=== PATIENT | male | born 1945 | race Caucasian/White ===

== ENCOUNTER 2020-06-17 12:59 | Inpatient (IN) | payer OTHER ==
[~2020-06-17] VITALS: Ht 177.8 cm; Wt 85.3 kg
[~2020-06-17 12:59] MED LIST: APOM10CA7 SQ; CARB-93 PO; CARB-96 PO; DIGO250T PO; FURO-151 PO; METO-357 PO; OXYC10TA59 PO; POTASSIUM CHLORIDE; PRAV40TA3 PO; RASA1TAB PO; RIVA20TA PO; ROPI1TAB2 PO; ROPI8TAB PO; SPIR25TA6 PO; TAMS0.4C34 PO
--- NOTE | 2020-06-17 13:02 | NUR ---
PATIENT IS HERE FROM [facility]. HE IS AWAKE AND ALERT WITH NO COMPLAINTS. I GAVE HIM WATER REQUESTED. HIS BELONGINGS ARE AT THE NURSES STATION AND SUICIDE PRECAUTIONS INITIATED.
[2020-06-17] MEDS ORDERED: CARB-93 PO ×2 (13:24)
[2020-06-17] MEDS ORDERED: DIVA125C2 PO (13:24)
[2020-06-17] MEDS ORDERED: CHOL10002 PO (13:24)
[2020-06-17] MEDS ORDERED: ATOR20TA PO (13:24)
[2020-06-17] MEDS ORDERED: LACT10SO PO (13:24)
[2020-06-17] MEDS ORDERED: MENT71OI TP (13:24)
[2020-06-17] MEDS ORDERED: DOCU100C36 PO (13:24)
[2020-06-17] MEDS ORDERED: MAGN296S70 PO (13:24)
[2020-06-17] MEDS ORDERED: DULO30CA2 PO (13:24)
[2020-06-17] MEDS ORDERED: IBUP-1953 PO (13:24)
--- NOTE | 2020-06-17 13:24 | NUR ---
REPORT GIVEN TO MHU NURSE
[2020-06-17] MEDS ORDERED: MORP30TA7 PO (13:39)
[2020-06-17] MEDS ORDERED: WHEA1POW6 PO (13:40)
[2020-06-17] MEDS ORDERED: QUET50TA PO (13:41)
[2020-06-17 14:30] VITALS: BP 143/84
--- NOTE | 2020-06-17 14:30 | NUR ---
Gps/Animal Feeder-Received from ER via gurney , alert, oriented x 3 , follows directions, slightly tremulous during transfers, needed verbal cueing sequencing tasks. Patient was admitted on 5150 as DTS/DTO, ws noted brought in into Emergency Dept. by Caregiver for rectal pain .Patient has hx of dementia and depression and he resides at assisted living facility Patient with worsening depression ,aggressive behavior and suicidal thought Patient denies S.I. nor H.I. Routine admission care done.
[2020-06-17] MEDS ORDERED: TEMAZEPAM 7.5 MG CAPSULE PO PRN (15:45)
[2020-06-17] MEDS ORDERED: ACETAMINOPHEN 325 MG TABLET PO PRN (15:45)
[2020-06-17] MEDS ORDERED: BLOOD SUGAR DIAGNOSTIC 1 EACH STRIP VI ONE (15:45)
[2020-06-17] MEDS ORDERED: MAGNESIUM HYDROXIDE 30 ML LIQUID UDC PO PRN (15:45)
[2020-06-17] MEDS ORDERED: MAG HYDROX/AL HYDROX/SIMETH 30 ML LIQUID UDC PO PRN (15:45)
--- NOTE | 2020-06-17 16:00 | NUR ---
Gps/Die Repairer Trimmer Dies- Called Luz () at [phone] , was informed of patient's admission to the MHU. Claimed staff can call her anytime.
--- NOTE | 2020-06-17 16:45 | NUR ---
Tasia Milton NP was informed of the admission, requested to called patient's Pharmacy to clarify/verify medications . Called [facility] (Ind. living facility) [phone] spoked to Kiera and thee [facility] ([phone]), supervisor fabrication Pharmacist was called, (Kimo) claimed patient was not on xarelto per their record, will faxed medication records.
[2020-06-17 20:00] VITALS: BP 132/82
[2020-06-17] MEDS: IBUPROFEN 200 MG TABLET PO PRN (20:26)
[2020-06-17] MEDS: LORAZEPAM 0.5 MG TABLET PO PRN (20:26)
[2020-06-17] MEDS: ATORVASTATIN 20 MG TABLET PO SCH (20:26)
[2020-06-18] MEDS ORDERED: CARBIDOPA/LEVODOPA 25-100MG TABLET PO SCH ×3 (06:00→21:00)
[2020-06-18 07:10] LABS: BASOPHILS % (AUTO) 0.3 % (0.0-2.0); EOSINOPHILS % (AUTO) 0.4 % (0.0-7.0); HEMATOCRIT 46.4 % (36.7-47.1); HEMOGLOBIN 15.6 g/dL (12.5-16.3); LYMPHOCYTES # (AUTO) 0.9 K/uL (20.0-40.0); LYMPHOCYTES % (AUTO) 11.6 % (20.5-51.5); MEAN CORPUSCULAR HEMOGLOBIN 29.9 uug (23.8-33.4); MEAN CORPUSCULAR HGB CONC 34 g/dL (32.5-36.3); MEAN CORPUSCULAR VOLUME 88.9 fL (73.0-96.2); MONOCYTES # (AUTO) 0.5 K/uL (2.0-10.0); MONOCYTES % (AUTO) 6.5 % (0.0-11.0); NEUTROPHILS # (AUTO) 6.5 K/uL (1.8-8.9); NEUTROPHILS % (AUTO) 81.2 % (38.5-71.5); PLATELET COUNT (AUTO) 174 K/uL (152-348); RED BLOOD CELL COUNT(AUTO) 5.21 MIL/uL (4.06-5.63)
[2020-06-18 07:30] VITALS: BP 145/75
[2020-06-18 07:35] LABS: MAGNESIUM 2.1 mg/dL (1.8-2.4); PHOSPHOROUS 3.3 mg/dL (2.5-4.9); POTASSIUM 3.7 mmol/L (3.5-5.1)
[2020-06-18 07:39] LABS: THYROID STIMULATING HORMONE 0.565 mIU/mL (0.358-3.740)
[2020-06-18] MEDS ORDERED: CARB-94 PO (08:40)
[2020-06-18] MEDS ORDERED: CARB-96 PO (08:44)
[2020-06-18] MEDS ORDERED: MORPHINE SULFATE SR 30 MG TABLET.SA PO SCH ×2 (09:00)
[2020-06-18] MEDS ORDERED: LACTULOSE 20 G/30 ML LIQUID UDC PO SCH (09:00)
[2020-06-18] MEDS: DOCUSATE SODIUM 100 MG CAPSULE PO SCH (10:06)
[2020-06-18] MEDS: CARBIDOPA/LEVODOPA 25-250MG TABLET PO SCH ×4 (10:06→18:22)
[2020-06-18] MEDS: CHOLECALCIFEROL 1,000 UNIT TABLET PO SCH (10:06)
[2020-06-18] MEDS: METOPROLOL SUCCINATE XL 25 MG TAB.SR.24H PO SCH (10:07)
[2020-06-18] MEDS: LACTULOSE 20 G/30 ML LIQUID UDC PO SCH (10:08)
--- NOTE | 2020-06-18 11:05 | NUR ---
TYRONE Initial Discharge Plan: Patient currently resides at [facility] [address] [place] [address] ([phone]). Patient's , Gerry Olivas ([phone]) is also the pt's DPOA and is involved in the pt's care and would like patient to return to [facility]. TYRONE will continue to work with patient, family, and MD to ensure a safe and proper discharge plan.
--- NOTE | 2020-06-18 11:06 | NUR ---
TYRONE Family Contact: Patient currently resides at [facility] [address] [place] [address] ([phone]). Patient's , Gerry Olivas ([phone]) is also the pt's DPOA and is involved in the pt's care and would like patient to return to [facility]. TYRONE will continue to work with patient, family, and MD to ensure a safe and proper discharge plan. Addendum: 06/18/20 at 1108 by MIKE VILLANUEVA Disregard Note
--- NOTE | 2020-06-18 11:08 | NUR ---
TYRONE Family Contact: TYRONE spoke with patient's , Gerry Olivas ([phone]) who stated she is the pt's DPOA, this lead technical writer requested for her to send the document which she stated that she will. Gerry shared that she would like the patient to return to [facility]. This lead technical writer discussed treatment and discharge plan.
--- NOTE | 2020-06-18 11:10 | NUR ---
Firearms Report: Cleater completed and submitted a [employer] firearms report for 5150 grave disability certification. A copy of report has been placed in patient chart.
[2020-06-18] MEDS ORDERED: MORP30TA PO (11:11)
--- NOTE | 2020-06-18 11:13 | NUR ---
TYRONE UR Note: TYRONE called Mackenzie fruit or nut farmworker at [facility] (ph: [phone]) to discuss authorization and clinicals needing to be sent. Waiting for a call back.
[2020-06-18] MEDS: DULOXETINE 30 MG CAPSULE.DR PO SCH (12:11)
[2020-06-18] MEDS: MORPHINE SULFATE IR 30 MG TABLET PO SCH ×2 (12:11→16:34)
[2020-06-18] MEDS: DIVALPROEX SPRINKLE 125 MG CAP.SPRINK PO SCH ×2 (12:12→16:32)
[2020-06-18 15:17] VITALS: BP 134/81
--- NOTE | 2020-06-18 16:12 | NUR ---
Gps/Senior Telecommunications Technician- Patient in bed resting, awake, quiet, guarded, remains with sitter for safety. Patient was cooperative during his P.T. session , will continue to be seen by Physical Therapist .
[2020-06-18] MEDS: IBUPROFEN 200 MG TABLET PO PRN (20:10)
[2020-06-18] MEDS: TAMSULOSIN HCL 0.4 MG CAP.SR.24H PO SCH (20:10)
[2020-06-18] MEDS: QUETIAPINE FUMARATE 25 MG TABLET PO SCH (20:10)
[2020-06-18] MEDS: ATORVASTATIN 20 MG TABLET PO SCH (20:10)
[2020-06-18] MEDS: CARBIDOPA/LEVODOPA CR 50-200MG TABLET.SA PO SCH (20:10)
[2020-06-18 20:14] VITALS: BP 150/87
[2020-06-19] MEDS: CARBIDOPA/LEVODOPA 25-250MG TABLET PO SCH ×5 (05:02→18:20)
[2020-06-19 07:30] VITALS: BP 104/62
[2020-06-19] MEDS: LACTULOSE 20 G/30 ML LIQUID UDC PO SCH (08:34)
[2020-06-19] MEDS: DOCUSATE SODIUM 100 MG CAPSULE PO SCH (08:34)
[2020-06-19] MEDS: MORPHINE SULFATE IR 30 MG TABLET PO SCH ×3 (08:35→16:49)
[2020-06-19] MEDS: CHOLECALCIFEROL 1,000 UNIT TABLET PO SCH (08:35)
[2020-06-19] MEDS: DIVALPROEX SPRINKLE 125 MG CAP.SPRINK PO SCH ×3 (08:35→16:49)
[2020-06-19] MEDS: METOPROLOL SUCCINATE XL 25 MG TAB.SR.24H PO SCH (08:37)
--- NOTE | 2020-06-19 09:34 | NUR ---
Patient received in room with a sitter, Pt is AAO x 3, able to express needs. No acute distress noted. Patient with tremors while getting up to sit on a thong-chair; with 2 person assist for care. Pt. was able to take all due morning meds. Skin kept clean and dry and will continue with care.
--- NOTE | 2020-06-19 09:35 | NUR ---
Patient with 1:1 sitter for safety.
[2020-06-19] MEDS: DULOXETINE 30 MG CAPSULE.DR PO SCH (13:12)
[2020-06-19 14:37] LABS: *BILIRUBIN,URIN NEGATIVE (NEGATIVE); *BLOOD, URINE NEGATIVE (NEGATIVE); *CLARITY,URINE CLEAR (CLEAR); *COLOR,URINE YELLOW (YELLOW); *KETONES,URINE TRACE (NEGATIVE); LEUKOCYTE ESTERASE ,URINE NEGATIVE (NEGATIVE); NITRITE, URINE NEGATIVE (NEGATIVE); PH,URINE 6.5 (5.0-8.0); UGLUCOSE NEGATIVE (NEGATIVE)
[2020-06-19 16:00] VITALS: BP 141/81
[2020-06-19 17:08] LABS: BACTERIA,URINE NONE SEEN /HPF (NONE SEEN); RBC,URINE 0-3 /HPF (0-3); SQUAMOUS EPITHELIAL CELL,UR FEW /HPF (NONE SEEN); WBC,URINE 0-3 /HPF (0-3)
[2020-06-19 20:11] VITALS: BP 123/73
[2020-06-19] MEDS: QUETIAPINE FUMARATE 25 MG TABLET PO SCH (20:41)
[2020-06-19] MEDS: TAMSULOSIN HCL 0.4 MG CAP.SR.24H PO SCH (20:41)
[2020-06-19] MEDS: ATORVASTATIN 20 MG TABLET PO SCH (20:41)
[2020-06-19] MEDS: CARBIDOPA/LEVODOPA CR 50-200MG TABLET.SA PO SCH (20:42)
--- NOTE | 2020-06-19 21:29 | NUR ---
Received patient in his room in bed. he is noted A/O x 3. he continue on 1:1 supervision for high fall risk. patient is clm and pleasant upon approached, he is able to verbalzied feelings. mood is low, affect is blunted. patient denied SI. He also denied AH/VH/HI. he is able to CFS. He stated, "I tried to take my life by drinking mouth wash. It was a very stupid thing i did". he also added that, "I was in so much pain and that is why i did that, but now I don't want to harm myself, i don't want to ". patient was reassured for his safety, safety and fall precaution in place. v/s stable at this time. patient is able to comply with medication regiment. will continue to monitor.
[2020-06-20] MEDS: CARBIDOPA/LEVODOPA 25-250MG TABLET PO SCH ×5 (06:21→17:21)
--- NOTE | 2020-06-20 07:08 | NUR ---
patient slept for approx. 7.30 hrs through the night. continue withdrawn and isolative. however, he denied SI. he is able to CFS. He also will continue on 1:1 supervision for fall risk.
[2020-06-20 07:30] VITALS: BP 115/60
[2020-06-20] MEDS: CHOLECALCIFEROL 1,000 UNIT TABLET PO SCH (08:42)
[2020-06-20] MEDS: DOCUSATE SODIUM 100 MG CAPSULE PO SCH (08:42)
[2020-06-20] MEDS: MORPHINE SULFATE IR 30 MG TABLET PO SCH ×3 (08:42→16:35)
[2020-06-20] MEDS: DIVALPROEX SPRINKLE 125 MG CAP.SPRINK PO SCH ×3 (08:43→16:35)
[2020-06-20] MEDS: LACTULOSE 20 G/30 ML LIQUID UDC PO SCH (08:43)
[2020-06-20] MEDS: METOPROLOL SUCCINATE XL 25 MG TAB.SR.24H PO SCH (08:45)
--- NOTE | 2020-06-20 10:45 | NUR ---
Patient received in room with a 1:1 sitter by bed side for safety. Patient is AAO x 3. NO acute distress noted. Able to express need verbally. Vital signs stable. Due morning medications administered as ordered and scheduled and tolerated well. Patient is complaint with medication therapy and care. Denies any suicidal ideations at this time. Patient encouraged to participate in group therapy. Patient joins therapy with minimal participation.
[2020-06-20] MEDS: DULOXETINE 30 MG CAPSULE.DR PO SCH (13:17)
--- NOTE | 2020-06-20 13:50 | NUR ---
Patient refused 1PM Depakote order. Patient very fidgety and unable to administer medication; patient also pushing meds away while trying to administer. Will continue with care. Addendum: 06/20/20 at 1918 by AMI ORDONEZ RN RN WRONG CHARTING.
--- NOTE | 2020-06-20 15:32 | NUR ---
Patient calm at this time. Cooperates with care. Safety measures in place and will continue with care.
[2020-06-20 16:00] VITALS: BP 110/58
--- NOTE | 2020-06-20 18:23 | NUR ---
Patient back in bed at this time after eating dinner. Sitter at bed side for safety, will continue to monitor.
[2020-06-20 20:11] VITALS: BP 104/59
[2020-06-20] MEDS: ATORVASTATIN 20 MG TABLET PO SCH (20:13)
[2020-06-20] MEDS: CARBIDOPA/LEVODOPA CR 50-200MG TABLET.SA PO SCH (20:13)
[2020-06-20] MEDS: TAMSULOSIN HCL 0.4 MG CAP.SR.24H PO SCH (20:13)
[2020-06-20] MEDS: QUETIAPINE FUMARATE 25 MG TABLET PO SCH (20:14)
--- NOTE | 2020-06-21 | NUR ---
Pt is transferred to 3rd floor from MHU via thong chair, transported by ZARI Diamond. Pt in no apparent distress. Pt is calm and cooperative. Pt denies S/I or hallucination. V/S stable on room air. Sitter is on the bedside. Safety measures in place, call light within reach. Will continue with the plan of care.
[2020-06-21] MEDS: CARBIDOPA/LEVODOPA 25-250MG TABLET PO SCH ×5 (06:01→17:23)
--- NOTE | 2020-06-21 07:05 | NUR ---
Pt slept through the night for 6 hours. Pt is awake and denies any acute distress or pain. Pt is calm and cooperative. Denies any SI. Sitter on the bedside. Fall and aspiration precaution maintained. Comfort care and needs attended. Safety measures in place. Will endorse to the oncoming nurse accordingly.
[2020-06-21 08:00] VITALS: BP 101/50
[2020-06-21] MEDS: DIVALPROEX SPRINKLE 125 MG CAP.SPRINK PO SCH ×3 (08:10→17:23)
[2020-06-21] MEDS: DOCUSATE SODIUM 100 MG CAPSULE PO SCH (08:10)
[2020-06-21] MEDS: CHOLECALCIFEROL 1,000 UNIT TABLET PO SCH (08:10)
[2020-06-21] MEDS: METOPROLOL SUCCINATE XL 25 MG TAB.SR.24H PO SCH (08:26)
[2020-06-21] MEDS: LACTULOSE 20 G/30 ML LIQUID UDC PO SCH (08:27)
[2020-06-21] MEDS: MORPHINE SULFATE IR 30 MG TABLET PO SCH ×3 (08:28→17:23)
--- NOTE | 2020-06-21 10:14 | NUR ---
Received patient awake in bed in stable condition. Slight tremors noted during round. Patient on sinemet routine for parkinson. Patient continue on 1:1 sitter. tolerated well. Patient seen and examined by MD Fonseca with no new order. not in distress. will continue monitor
[2020-06-21] MEDS: DULOXETINE 30 MG CAPSULE.DR PO SCH (13:29)
[2020-06-21 16:00] VITALS: BP 122/60
[2020-06-21] MEDS: LORAZEPAM 0.5 MG TABLET PO PRN (18:33)
--- NOTE | 2020-06-21 19:30 | NUR ---
Received patient in his room in bed. he is noted A/O x 3. Patient engages in conversation when approached. Their mood is low, affect is blunted and withdrawn. 1:1 Sitter at bedside. No signs or symptoms of acute distress noted at this time. Reassured patient of safety. Will continue to monitor.
[2020-06-21] MEDS: DIVALPROEX 500 MG TABLET.DR PO SCH (20:19)
[2020-06-21] MEDS: TAMSULOSIN HCL 0.4 MG CAP.SR.24H PO SCH (20:20)
[2020-06-21] MEDS: ATORVASTATIN 20 MG TABLET PO SCH (20:21)
[2020-06-21] MEDS: QUETIAPINE FUMARATE 25 MG TABLET PO SCH (20:21)
[2020-06-21] MEDS: CARBIDOPA/LEVODOPA CR 50-200MG TABLET.SA PO SCH (20:21)
[2020-06-22] MEDS: CARBIDOPA/LEVODOPA 25-250MG TABLET PO SCH ×5 (06:00→17:16)
[2020-06-22 06:35] VITALS: BP 112/68
--- NOTE | 2020-06-22 06:46 | NUR ---
Patient slept through the night for approx. 8 hours. 1:1 Sitter at bedside. Pt was cooperative with all medications. Fall precautions in place. Safety measures endorsed to oncoming nurse.
[2020-06-22] MEDS: CHOLECALCIFEROL 1,000 UNIT TABLET PO SCH (08:24)
[2020-06-22] MEDS: DIVALPROEX SPRINKLE 125 MG CAP.SPRINK PO SCH ×3 (08:24→16:56)
[2020-06-22] MEDS: LACTULOSE 20 G/30 ML LIQUID UDC PO SCH (08:24)
[2020-06-22] MEDS: MORPHINE SULFATE IR 30 MG TABLET PO SCH ×3 (08:25→16:56)
[2020-06-22 08:30] VITALS: BP 105/57
[2020-06-22 08:35] VITALS: BP 106/51
[2020-06-22] MEDS: METOPROLOL SUCCINATE XL 25 MG TAB.SR.24H PO SCH (08:35)
[2020-06-22] MEDS: DOCUSATE SODIUM 100 MG CAPSULE PO SCH (08:40)
--- NOTE | 2020-06-22 09:53 | NUR ---
TYRONE UR Note: TYRONE attempted to call Mackenzie mud car worker at [facility] (ph: [phone]) again to collect authorization information and faxed clinicals this morning (fax: [phone]). Left a voicemail requesting a return call.
--- NOTE | 2020-06-22 09:58 | NUR ---
TYRONE PRESSLEY Note: TYRONE called the [facility] main number ([phone]) and was transferred to [facility], spoke with Tiana regarding this editorial writer trying to reach Rito. Tiana transferred this editorial writer to her desk and this editorial writer was able to speak with her. This editorial writer informed the clinicals were faxed for review. Rito stated she will review the clinicals and call this editorial writer back today with authorization information. Addendum: 06/22/20 at 1501 by MIKE VILLANUEVA Rito called this editorial writer back and provided Authorization # [id number]
[2020-06-22] MEDS ORDERED: diphenhydrAMINE/ZINC ACET CREAM 28 GM TUBE TOP PRN (10:30)
[2020-06-22 10:37] VITALS: BP 116/64
[2020-06-22] MEDS: DULOXETINE 30 MG CAPSULE.DR PO SCH (13:09)
--- NOTE | 2020-06-22 14:18 | NUR ---
Received patient awake in bed. Jerking movement noted during rounds. Patient continue Sinemet for Parkinson. Patient continue pain management as order. not in distress. Patient low BP 105/57 in the morning relayed to MESHA Wise. Patient no complaint of dizziness. no new order as of this time. will continue monitor
--- NOTE | 2020-06-22 15:02 | NUR ---
SW Family Contact: SW spoke with patient's , Gerry Olivas ([phone]) and discussed how the patient is doing and what the potential discharge plan looks like.
[2020-06-22 15:18] VITALS: BP 121/60
--- NOTE | 2020-06-22 18:51 | NUR ---
Patient sent back to mental health unit for continuity of care around 630pm. Patient in stable condition. not in distress. Patient report given to PAMELA Tolentino.
[2020-06-22] MEDS: TAMSULOSIN HCL 0.4 MG CAP.SR.24H PO SCH (20:35)
[2020-06-22] MEDS: DIVALPROEX 500 MG TABLET.DR PO SCH (20:35)
[2020-06-22 20:36] VITALS: BP 93/56
[2020-06-22] MEDS: QUETIAPINE FUMARATE 25 MG TABLET PO SCH (20:36)
[2020-06-22] MEDS: ATORVASTATIN 20 MG TABLET PO SCH (20:36)
[2020-06-22] MEDS: CARBIDOPA/LEVODOPA CR 50-200MG TABLET.SA PO SCH (20:56)
--- NOTE | 2020-06-23 05:19 | NUR ---
GPS/ Pt was received up in thong-chair, 1;1 sitter with him at TV room. Pt noted with episodes of trying to help or move himself but with tremors. Also during transfer noted pt very shaky and anxious which was causing staffs difficulty moving him. Cooperative with medication and no aggression noted. 1:1 at bed side and continue monitor. Pt slept about 5hrs at night.
[2020-06-23] MEDS: CARBIDOPA/LEVODOPA 25-250MG TABLET PO SCH ×5 (06:20→17:56)
[2020-06-23 07:30] VITALS: BP 114/72
[2020-06-23 08:05] LABS: BASOPHILS % (AUTO) 0.5 % (0.0-2.0); EOSINOPHILS # (AUTO) 0.2 K/uL (0.0-0.7); EOSINOPHILS % (AUTO) 4.3 % (0.0-7.0); HEMATOCRIT 42.4 % (36.7-47.1); HEMOGLOBIN 14.1 g/dL (12.5-16.3); LYMPHOCYTES # (AUTO) 1.3 K/uL (20.0-40.0); LYMPHOCYTES % (AUTO) 27.8 % (20.5-51.5); MEAN CORPUSCULAR HEMOGLOBIN 29.9 uug (23.8-33.4); MEAN CORPUSCULAR HGB CONC 33 g/dL (32.5-36.3); MEAN CORPUSCULAR VOLUME 89.9 fL (73.0-96.2); MONOCYTES # (AUTO) 0.3 K/uL (2.0-10.0); MONOCYTES % (AUTO) 7.1 % (0.0-11.0); NEUTROPHILS # (AUTO) 2.9 K/uL (1.8-8.9); NEUTROPHILS % (AUTO) 60.3 % (38.5-71.5); PLATELET COUNT (AUTO) 147 K/uL (152-348); RED BLOOD CELL COUNT(AUTO) 4.72 MIL/uL (4.06-5.63); WHITE BLOOD COUNT (AUTO) 4.8 K/uL (3.6-10.2)
[2020-06-23 08:15] LABS: ALKALINE PHOSPHATASE 75 U/L (50-136); ASPARTATE AMINOTRANSFERASE 12 U/L (15-37); BILIRUBIN,TOTAL 0.6 mg/dL (0.2-1.0); CARBON DIOXIDE 33 mmol/L (21-32); CHLORIDE 105 mmol/L (98-107); CREATININE 0.7 mg/dL (0.6-1.3); GLUCOSE 92 mg/dL (74-106); POTASSIUM 4.8 mmol/L (3.5-5.1); TOTAL PROTEIN, SERUM 5.9 g/dL (6.4-8.2); UREA NITROGEN, BLOOD 18 mg/dL (7-18); VALPROIC ACID 87 ug/mL (50-100)
[2020-06-23 08:24] LABS: ALANINE AMINOTRANSFERASE < 6 U/L (16-63)
[2020-06-23] MEDS: DOCUSATE SODIUM 100 MG CAPSULE PO SCH (09:02)
[2020-06-23] MEDS: DIVALPROEX SPRINKLE 125 MG CAP.SPRINK PO SCH ×3 (09:02→16:45)
[2020-06-23] MEDS: CHOLECALCIFEROL 1,000 UNIT TABLET PO SCH (09:02)
[2020-06-23] MEDS: METOPROLOL SUCCINATE XL 25 MG TAB.SR.24H PO SCH (09:08)
[2020-06-23] MEDS: MORPHINE SULFATE IR 30 MG TABLET PO SCH ×3 (09:19→16:46)
[2020-06-23] MEDS: LACTULOSE 20 G/30 ML LIQUID UDC PO SCH (09:50)
--- NOTE | 2020-06-23 11:23 | NUR ---
CASSI UR Note: Authorization # [id number] Cassi spoke with correctional case manager Rito at [facility] ([phone]) regarding patient's discharge planning. This lead technical writer informed Rito of the patient's discharge date tentative for Sunday06/28/2020. Rito stated she will make the patient's aftercare follow up appointments with his primary care physician and psychiatrist and call this lead technical writer back with the appointment information.
--- NOTE | 2020-06-23 11:26 | NUR ---
TYRONE Discharge Planning: TYRONE spoke with Jud at [facility] and requested to speak with Elizabeth the therapy site coordinator ([phone]) to inform of the patient's discharge plan for Sunday. Elizabeth was unavailable at the moment and Jud stated she will pass on the message. This life insurance underwriter provided a call back number for Elizabeth to call this life insurance underwriter back. Addendum: 06/24/20 at 1439 by MIKE VILLANUEVA Corrected phone number for [facility] ([phone])
[2020-06-23] MEDS: DULOXETINE 30 MG CAPSULE.DR PO SCH (12:38)
[2020-06-23 16:00] VITALS: BP 108/62
[2020-06-23 20:13] VITALS: BP 110/62
[2020-06-23] MEDS: QUETIAPINE FUMARATE 25 MG TABLET PO SCH (21:58)
[2020-06-23] MEDS: TAMSULOSIN HCL 0.4 MG CAP.SR.24H PO SCH (21:58)
[2020-06-23] MEDS: CARBIDOPA/LEVODOPA CR 50-200MG TABLET.SA PO SCH (21:58)
[2020-06-23] MEDS: ATORVASTATIN 20 MG TABLET PO SCH (21:59)
[2020-06-23] MEDS: DIVALPROEX 500 MG TABLET.DR PO SCH (21:59)
[2020-06-24] MEDS: CARBIDOPA/LEVODOPA 25-250MG TABLET PO SCH ×5 (06:10→17:13)
[2020-06-24 07:30] VITALS: BP 119/65
[2020-06-24] MEDS: DIVALPROEX SPRINKLE 125 MG CAP.SPRINK PO SCH ×3 (09:22→16:28)
[2020-06-24] MEDS: MORPHINE SULFATE IR 30 MG TABLET PO SCH ×3 (09:22→16:28)
[2020-06-24] MEDS: CHOLECALCIFEROL 1,000 UNIT TABLET PO SCH (09:23)
[2020-06-24] MEDS: LACTULOSE 20 G/30 ML LIQUID UDC PO SCH (09:23)
[2020-06-24] MEDS: DOCUSATE SODIUM 100 MG CAPSULE PO SCH (09:23)
[2020-06-24] MEDS: METOPROLOL SUCCINATE XL 25 MG TAB.SR.24H PO SCH (09:23)
--- NOTE | 2020-06-24 11:45 | NUR ---
Gps/Gold- Myrna Cutler MINGLER OPERATOR for the patient at the [facility], wants to know the progress . Informed patient had been compliant with his routine meds, no aggressive behavior noted at this time. Kept up on his thong-chair , and staying with his group therapy
[2020-06-24] MEDS: DULOXETINE 30 MG CAPSULE.DR PO SCH (12:26)
--- NOTE | 2020-06-24 14:39 | NUR ---
TYRONE Coordination of Care: SW spoke with [facility] maintenance coordinator at [facility] ([phone]) and is aware and agreeable with patient's discharge plan back to their facility on Sunday.
--- NOTE | 2020-06-24 15:12 | NUR ---
Gps/Vibration Analyst- Called 3rd floor for report , and was given to Jemma Moralezn. . Patient was informed of his transfer.( as Psych. overflow)
--- NOTE | 2020-06-24 15:35 | NUR ---
Gps/Information Receptionist- Transferred to 3rd floor #330 (overflow) in no distress, was toileted , prior transferred .
[2020-06-24] MEDS: TAMSULOSIN HCL 0.4 MG CAP.SR.24H PO SCH (20:15)
[2020-06-24] MEDS: DIVALPROEX 500 MG TABLET.DR PO SCH (20:15)
[2020-06-24] MEDS: CARBIDOPA/LEVODOPA CR 50-200MG TABLET.SA PO SCH (20:16)
[2020-06-24] MEDS: ATORVASTATIN 20 MG TABLET PO SCH (20:16)
[2020-06-24] MEDS: QUETIAPINE FUMARATE 25 MG TABLET PO SCH (20:16)
[2020-06-24] MEDS: LORAZEPAM 0.5 MG TABLET PO PRN (21:11)
[2020-06-25 04:52] VITALS: BP 105/63
[2020-06-25] MEDS: CARBIDOPA/LEVODOPA 25-250MG TABLET PO SCH ×5 (06:12→17:30)
[2020-06-25 08:36] VITALS: BP 105/48
[2020-06-25] MEDS: METOPROLOL SUCCINATE XL 25 MG TAB.SR.24H PO SCH (09:00)
[2020-06-25] MEDS: DOCUSATE SODIUM 100 MG CAPSULE PO SCH (09:03)
[2020-06-25] MEDS: CHOLECALCIFEROL 1,000 UNIT TABLET PO SCH (09:03)
[2020-06-25] MEDS: DIVALPROEX SPRINKLE 125 MG CAP.SPRINK PO SCH ×3 (09:04→17:28)
[2020-06-25] MEDS: MORPHINE SULFATE IR 30 MG TABLET PO SCH ×3 (09:05→17:42)
[2020-06-25] MEDS: LACTULOSE 20 G/30 ML LIQUID UDC PO SCH (09:26)
--- NOTE | 2020-06-25 10:30 | NUR ---
Patient awake, alert, not in any form of distress. 1:1 sitter at bedside. Safety measures maintained. Patient compliant with medications. Patient seen by Dr. Fonseca, update given, with no new order at this time.
[2020-06-25 11:00] VITALS: BP 102/62
[2020-06-25] MEDS ORDERED: QUETIAPINE FUMARATE 25 MG TABLET PO PRN (11:15)
--- NOTE | 2020-06-25 12:08 | NUR ---
TYRONE Family Contact: SW left a brief voicemail for patient's , Gerry Olivas ([phone]) informing of the change in discharge planning. Waiting for a call back.
--- NOTE | 2020-06-25 12:09 | NUR ---
CASSI Note: Authorization # [id number] Cassi spoke with rn case manager Rito at [facility] ([phone]) regarding the change in the patient's discharge plan that was orignally planned for Thursday 06/28. Dr. Fonseca informed this greeting card writer that the aptient presented with behavior issues and attempted to strike out at staff and was agitated ad psychotic. Rito stated that the doctor did inform them of this as well, and they will continued to authorize the patient for continues hospitalization. Rito stated that she will hold off on making the patient's aftercare provider appointment until we have another set discharge date, and will also arrange transportation when the patient is ready to be discharged.
[2020-06-25] MEDS: QUETIAPINE FUMARATE 25 MG TABLET PO SCH ×3 (12:25→20:17)
[2020-06-25 15:04] VITALS: BP 110/47
--- NOTE | 2020-06-25 20:00 | NUR ---
sitter at bedside,sleeping reposition for comfort,in no acute distress vital signs stable.
[2020-06-25 20:09] VITALS: BP 106/58
[2020-06-25] MEDS: DIVALPROEX 500 MG TABLET.DR PO SCH (20:14)
[2020-06-25] MEDS: CARBIDOPA/LEVODOPA CR 50-200MG TABLET.SA PO SCH (20:15)
[2020-06-25] MEDS: TAMSULOSIN HCL 0.4 MG CAP.SR.24H PO SCH (20:16)
[2020-06-25] MEDS: ATORVASTATIN 20 MG TABLET PO SCH (20:18)
--- NOTE | 2020-06-26 | NUR ---
seroquel 25 mg not given.pt lethargic but arousable.
[2020-06-26] MEDS: CARBIDOPA/LEVODOPA 25-250MG TABLET PO SCH ×6 (06:54→18:00)
--- NOTE | 2020-06-26 07:45 | NUR ---
Received patient asleep but easily arousable, on 2LPM oxygen per nasal cannula. Received report of episode of desat with [facility] shift lead nurse hence on O2. 1:1 sitter at bedside. Will continue monitor.
--- NOTE | 2020-06-26 07:53 | NUR ---
slept most of the nite ,11 hours
[2020-06-26 08:00] VITALS: BP 110/53
[2020-06-26] MEDS: METOPROLOL SUCCINATE XL 25 MG TAB.SR.24H PO SCH (09:00)
[2020-06-26] MEDS: MORPHINE SULFATE IR 30 MG TABLET PO SCH ×3 (09:00→17:00)
[2020-06-26] MEDS: DOCUSATE SODIUM 100 MG CAPSULE PO SCH (09:29)
[2020-06-26] MEDS: QUETIAPINE FUMARATE 25 MG TABLET PO SCH ×5 (09:30→20:31)
[2020-06-26] MEDS: CHOLECALCIFEROL 1,000 UNIT TABLET PO SCH (09:30)
[2020-06-26] MEDS: DIVALPROEX SPRINKLE 125 MG CAP.SPRINK PO SCH ×4 (09:31→17:32)
[2020-06-26] MEDS: LACTULOSE 20 G/30 ML LIQUID UDC PO SCH (09:31)
--- NOTE | 2020-06-26 09:40 | NUR ---
Patient is awake. Temperature noted 99.6 with non-productive cough. DNP Maverick Wise saw patient, update given and he said to hold morphine, continue the rest of medications and that he will put in orders. Due medications administered and tolerated well, morphine held as advised by DNP.
[2020-06-26 10:13] LABS: BASOPHILS % (AUTO) 0.3 % (0.0-2.0); EOSINOPHILS # (AUTO) 0.1 K/uL (0.0-0.7); EOSINOPHILS % (AUTO) 2.4 % (0.0-7.0); HEMATOCRIT 44.2 % (36.7-47.1); HEMOGLOBIN 14.6 g/dL (12.5-16.3); LYMPHOCYTES # (AUTO) 0.9 K/uL (20.0-40.0); LYMPHOCYTES % (AUTO) 17.5 % (20.5-51.5); MEAN CORPUSCULAR HEMOGLOBIN 29.5 uug (23.8-33.4); MEAN CORPUSCULAR HGB CONC 33 g/dL (32.5-36.3); MEAN CORPUSCULAR VOLUME 89.4 fL (73.0-96.2); MONOCYTES # (AUTO) 0.4 K/uL (2.0-10.0); MONOCYTES % (AUTO) 7.6 % (0.0-11.0); NEUTROPHILS # (AUTO) 3.7 K/uL (1.8-8.9); NEUTROPHILS % (AUTO) 72.2 % (38.5-71.5); PLATELET COUNT (AUTO) 139 K/uL (152-348); RED BLOOD CELL COUNT(AUTO) 4.94 MIL/uL (4.06-5.63); WHITE BLOOD COUNT (AUTO) 5.1 K/uL (3.6-10.2)
[2020-06-26 10:23] LABS: CREATININE 0.9 mg/dL (0.6-1.3)
[2020-06-26 10:53] LABS: ABG BASE EXCESS 5.3 mmol/L; ABG HCO3 30.9 mmol/L; ABG PCO2 48.7 mmHg (35.0-45.0); ABG PO2 60.4 mmHg (75.0-100.0); ABG SITE RIGHT RADIAL; COHb 1.3 % (0.5-1.5); MetHb 0.3 % (0.0-1.5); O2Hb 90.7 % (94.0-97.0); VENT MODE Nasal Cannula
[2020-06-26] MEDS: IBUPROFEN 200 MG TABLET PO PRN (12:33)
[2020-06-26 12:44] VITALS: BP 106/66
[2020-06-26] MEDS: LORAZEPAM 0.5 MG TABLET PO PRN (14:14)
[2020-06-26] MEDS ORDERED: OLANZAPINE 10 MG VIAL IM ONE (14:45)
--- NOTE | 2020-06-26 14:50 | NUR ---
Patient noted to be aggressive, combative trying to hit/kick staff with patient care. Attempted to give routine due PO medication and PRN ativan but patient refused and threw away. Informed Dr. Vasquez airport operations duty manager for Dr. Fonseca and ordered Zyprexa 10mg IM x1. Patient also seen by Dr. Vasquez.
--- NOTE | 2020-06-26 15:42 | NUR ---
Received report from Nadine SANTIAGO, Patient was moved to Room 316.
[2020-06-26] MEDS ORDERED: BISACODYL 10 MG SUPP.RECT RC ONE (17:45)
--- NOTE | 2020-06-26 18:19 | NUR ---
Patient in bed, asleep. On Oxygen at 2L via nasal canula, sat 96%. Afebrile. No signs of pain or discomfort. 1700 and 1800 not administered, patient asleep. remains on 1:1 sitter for safety. kept clean and comfortable. Will endorse to Oncoming Nurse.
[2020-06-26] MEDS: DIVALPROEX 500 MG TABLET.DR PO SCH (20:30)
[2020-06-26] MEDS: CARBIDOPA/LEVODOPA CR 50-200MG TABLET.SA PO SCH (20:30)
[2020-06-26] MEDS: TAMSULOSIN HCL 0.4 MG CAP.SR.24H PO SCH (20:30)
--- NOTE | 2020-06-26 20:30 | NUR ---
Patient awake with O2 inhalation @ 2L via NC saturating at 96%.Noted with tremors on betsy hand.Cooperative and compliant with medication.BM x2.Changed and Reposition for comfort.Sitter at bedside.
[2020-06-26] MEDS: ATORVASTATIN 20 MG TABLET PO SCH (20:36)
[2020-06-26 22:06] VITALS: BP 141/77
[2020-06-27] MEDS: CARBIDOPA/LEVODOPA 25-250MG TABLET PO SCH ×5 (05:11→17:44)
--- NOTE | 2020-06-27 06:33 | NUR ---
Patient slept about 5.5 hrs. No episodes of aggressive behavior.1:1 sitter at bedside.Will endorse to oncoming nurse.
[2020-06-27 07:30] VITALS: BP 128/76
--- NOTE | 2020-06-27 08:00 | NUR ---
Pt alert and oriented x [address] and [address]. 1:1 sitter at bedside secondary to 520 hold for danger to himself. NO SI noted and pt denies any SI. . pt has flat affect. 02 @ 2liters with 97% o2 sat. Will taper o2 as able. Pt cooperative on taking his morning pills.
[2020-06-27] MEDS: LACTULOSE 20 G/30 ML LIQUID UDC PO SCH (08:12)
[2020-06-27] MEDS: QUETIAPINE FUMARATE 25 MG TABLET PO SCH ×4 (08:12→20:09)
[2020-06-27] MEDS: CHOLECALCIFEROL 1,000 UNIT TABLET PO SCH (08:12)
[2020-06-27] MEDS: DIVALPROEX SPRINKLE 125 MG CAP.SPRINK PO SCH ×3 (08:12→17:44)
[2020-06-27] MEDS: MORPHINE SULFATE IR 30 MG TABLET PO SCH ×3 (08:13→17:44)
[2020-06-27] MEDS: METOPROLOL SUCCINATE XL 25 MG TAB.SR.24H PO SCH (08:13)
[2020-06-27] MEDS: DOCUSATE SODIUM 100 MG CAPSULE PO SCH (08:13)
[2020-06-27] MEDS: ENOXAPARIN SODIUM 40 MG/0.4 ML DISP.SYRIN SQ SCH (10:21)
[2020-06-27 16:03] VITALS: BP 108/64
--- NOTE | 2020-06-27 18:30 | NUR ---
Pt has been compliant throughout shift. No combative episodes noted. Pt had x 2 BM. Pt had good appetite for dinner ate 100%.
[2020-06-27 19:43] VITALS: BP 101/59
[2020-06-27] MEDS: TAMSULOSIN HCL 0.4 MG CAP.SR.24H PO SCH (20:08)
[2020-06-27] MEDS: ATORVASTATIN 20 MG TABLET PO SCH (20:09)
[2020-06-27] MEDS: DIVALPROEX 500 MG TABLET.DR PO SCH (20:09)
[2020-06-27] MEDS: CARBIDOPA/LEVODOPA CR 50-200MG TABLET.SA PO SCH (20:10)
[2020-06-28] MEDS: CARBIDOPA/LEVODOPA 25-250MG TABLET PO SCH ×5 (05:42→17:58)
--- NOTE | 2020-06-28 06:23 | NUR ---
pt rested well in between care; sitter at bedside; compliant with meds; slept 8 hours; continue to monitor; continue plan of care.
--- NOTE | 2020-06-28 07:30 | NUR ---
AWAKE ALERT AND VERBALLY RESPONSIVE, CALMED AND COOPERATIVE WITH 1:1 SITTER AT BEDSIDE. PATIENT ON 5250 TILL 07/03/2020. NO SS OF SOB. AFEBRILE
[2020-06-28 07:35] LABS: BASOPHILS % (AUTO) 0.5 % (0.0-2.0); EOSINOPHILS # (AUTO) 0.2 K/uL (0.0-0.7); EOSINOPHILS % (AUTO) 2.9 % (0.0-7.0); HEMATOCRIT 45.2 % (36.7-47.1); HEMOGLOBIN 15.1 g/dL (12.5-16.3); LYMPHOCYTES # (AUTO) 1.2 K/uL (20.0-40.0); MEAN CORPUSCULAR HEMOGLOBIN 29.9 uug (23.8-33.4); MEAN CORPUSCULAR HGB CONC 33 g/dL (32.5-36.3); MEAN CORPUSCULAR VOLUME 89.8 fL (73.0-96.2); MONOCYTES # (AUTO) 0.4 K/uL (2.0-10.0); MONOCYTES % (AUTO) 6.6 % (0.0-11.0); NEUTROPHILS # (AUTO) 3.9 K/uL (1.8-8.9); PLATELET COUNT (AUTO) 134 K/uL (152-348); RED BLOOD CELL COUNT(AUTO) 5.03 MIL/uL (4.06-5.63); WHITE BLOOD COUNT (AUTO) 5.7 K/uL (3.6-10.2)
[2020-06-28 07:45] LABS: CREATININE 0.8 mg/dL (0.6-1.3); MAGNESIUM 1.9 mg/dL (1.8-2.4); PHOSPHOROUS 3.3 mg/dL (2.5-4.9); POTASSIUM 3.6 mmol/L (3.5-5.1)
[2020-06-28] MEDS: DOCUSATE SODIUM 100 MG CAPSULE PO SCH (08:17)
[2020-06-28] MEDS: QUETIAPINE FUMARATE 25 MG TABLET PO SCH ×4 (08:17→21:03)
[2020-06-28] MEDS: DIVALPROEX SPRINKLE 125 MG CAP.SPRINK PO SCH ×3 (08:18→17:24)
[2020-06-28] MEDS: LACTULOSE 20 G/30 ML LIQUID UDC PO SCH (08:18)
[2020-06-28] MEDS: CHOLECALCIFEROL 1,000 UNIT TABLET PO SCH (08:18)
[2020-06-28] MEDS: METOPROLOL SUCCINATE XL 25 MG TAB.SR.24H PO SCH (08:18)
[2020-06-28] MEDS: MORPHINE SULFATE IR 30 MG TABLET PO SCH ×3 (08:19→17:00)
[2020-06-28] MEDS: ENOXAPARIN SODIUM 40 MG/0.4 ML DISP.SYRIN SQ SCH (08:23)
--- NOTE | 2020-06-28 11:00 | NUR ---
SEEN BY DR REYES FOR FOLLOW-UP. POSSIBLE TRANSFER BACK TO U IF PCR COVID 19 RESULTS (-). CONTINUE 1:1 SITTER
--- NOTE | 2020-06-28 15:26 | NUR ---
FAMILY CONTACT: SW received a call from patient's , Gerry Olivas ([phone]) requesting discharge information. SW informed her that pt will be discharging pt on Sunday06/30/20. stated to contact pts social worker palliative care at [facility] to arrange transportation.
--- NOTE | 2020-06-28 15:30 | NUR ---
TYRONE UR NOTE: Authorization # [id number] TYRONE contacted case making machine operator Rito at [facility] ([phone]) and left a voicemail informing her that pt will be discharged on Sunday06/30/20. TYRONE requested transportation arrangement and follow up appointments.
--- NOTE | 2020-06-28 15:38 | NUR ---
FACILITY CONTACT: TYRONE contacted [facility] [address], [place] [address] ([phone]) and spoke with Jud and left a message for the junior systems administrator informing her pt will be discharged on Sunday06/30/20.
[2020-06-28 16:08] VITALS: BP 114/48
--- NOTE | 2020-06-28 16:19 | NUR ---
PATIENT TRANSFERRED TO MHU VIA CHAIR WITH SITTER. REPORT GIVEN TO PADMINI
--- NOTE | 2020-06-28 16:21 | NUR ---
Received patient from [facility] overflow around 420pm with 1:1 sitter Patient in stable condition. Report given by PAMELA krishnan. will continue monitor
--- NOTE | 2020-06-28 18:38 | NUR ---
Patient refuse morphine routine this afternoon. Patient verbalize no pain. will continue monitor
[2020-06-28 20:00] VITALS: BP 108/53
[2020-06-28] MEDS ORDERED: CARBIDOPA/LEVODOPA CR 50-200MG TABLET.SA PO ONE (20:36)
[2020-06-28] MEDS: TAMSULOSIN HCL 0.4 MG CAP.SR.24H PO SCH (21:03)
[2020-06-28] MEDS: ATORVASTATIN 20 MG TABLET PO SCH (21:03)
[2020-06-28] MEDS: CARBIDOPA/LEVODOPA CR 50-200MG TABLET.SA PO SCH (21:03)
[2020-06-28] MEDS: DIVALPROEX 250 MG TABLET.DR PO SCH (21:20)
[2020-06-29] MEDS ORDERED: CARBIDOPA/LEVODOPA CR 25-100MG TABLET.SA PO ONE (05:30)
[2020-06-29] MEDS ORDERED: CARBIDOPA/LEVODOPA CR 50-200MG TABLET.SA PO ONE (05:31)
[2020-06-29] MEDS: CARBIDOPA/LEVODOPA 25-250MG TABLET PO SCH ×5 (05:38→18:10)
[2020-06-29] MEDS: MORPHINE SULFATE IR 30 MG TABLET PO SCH ×3 (06:25→17:09)
[2020-06-29 07:30] VITALS: BP 101/59
--- NOTE | 2020-06-29 08:22 | NUR ---
TYRONE UR NOTE: Authorization # [id number] TYRONE contacted case aide Rito at [facility] ([phone]) and left a voicemail informing her that pt will be discharged on Sunday06/30/20. TYRONE requested transportation arrangement and follow up appointments.
[2020-06-29] MEDS: QUETIAPINE FUMARATE 25 MG TABLET PO SCH ×4 (08:54→20:33)
[2020-06-29] MEDS: CHOLECALCIFEROL 1,000 UNIT TABLET PO SCH (08:54)
[2020-06-29] MEDS: DOCUSATE SODIUM 100 MG CAPSULE PO SCH (08:54)
[2020-06-29] MEDS: DIVALPROEX SPRINKLE 125 MG CAP.SPRINK PO SCH ×3 (08:55→17:08)
[2020-06-29] MEDS: METOPROLOL SUCCINATE XL 25 MG TAB.SR.24H PO SCH (08:55)
[2020-06-29] MEDS: ENOXAPARIN SODIUM 40 MG/0.4 ML DISP.SYRIN SQ SCH (08:57)
[2020-06-29] MEDS: LACTULOSE 20 G/30 ML LIQUID UDC PO SCH (09:00)
--- NOTE | 2020-06-29 10:52 | NUR ---
TYRONE NOTE: Authorization # [id number] TYRONE contacted patient case manager Rito at [facility] ([phone]) to arrange transportation. Pt will be picked up at 12:00pm via private vehicle by [employer]. Pt will be following up with Primary Physician: Dr. Yepez; Nurse Practitioner: Cynthia Mejia and Psychiatrist: Dr. Fonseca. Addendum: 06/29/20 at 1055 by FARIHA HANSEN DISCHARGE DATE: [facility]06/30/20 [facility]
--- NOTE | 2020-06-29 12:00 | NUR ---
FAMILY CONTACT: SW contacted patient's , Gerry Olivas ([phone]) to confirm pts discharge tomorrow Sunday06/30/20 at 12:00pm. agrees with discharge plan.
[2020-06-29 17:14] VITALS: BP 100/52
[2020-06-29 20:02] VITALS: BP 117/63
[2020-06-29] MEDS: CARBIDOPA/LEVODOPA CR 50-200MG TABLET.SA PO SCH (20:33)
[2020-06-29] MEDS: TAMSULOSIN HCL 0.4 MG CAP.SR.24H PO SCH (20:34)
[2020-06-29] MEDS: DIVALPROEX 250 MG TABLET.DR PO SCH (20:34)
[2020-06-29] MEDS: ATORVASTATIN 20 MG TABLET PO SCH (20:49)
[2020-06-30] MEDS: CARBIDOPA/LEVODOPA 25-250MG TABLET PO SCH ×3 (06:13→11:29)
[2020-06-30 07:30] VITALS: BP 120/57
[2020-06-30] MEDS: DOCUSATE SODIUM 100 MG CAPSULE PO SCH (08:21)
[2020-06-30] MEDS: CHOLECALCIFEROL 1,000 UNIT TABLET PO SCH (08:22)
[2020-06-30] MEDS: DIVALPROEX SPRINKLE 125 MG CAP.SPRINK PO SCH ×2 (08:22→12:01)
[2020-06-30] MEDS: QUETIAPINE FUMARATE 25 MG TABLET PO SCH ×2 (08:22→12:01)
[2020-06-30] MEDS: MORPHINE SULFATE IR 30 MG TABLET PO SCH ×2 (08:22→12:01)
[2020-06-30 08:23] VITALS: BP 120/57
[2020-06-30] MEDS: METOPROLOL SUCCINATE XL 25 MG TAB.SR.24H PO SCH (08:23)
[2020-06-30] MEDS: LACTULOSE 20 G/30 ML LIQUID UDC PO SCH (08:24)
[2020-06-30] MEDS: ENOXAPARIN SODIUM 40 MG/0.4 ML DISP.SYRIN SQ SCH (08:25)
--- NOTE | 2020-06-30 08:54 | NUR ---
Discharge Note: Pt was discharged to [facility] located at [address] [place] [address] ([phone]). SW contacted nurse outreach case manager Rito at [facility] ([phone]) to arrange transportation. Pt was picked up at 12:00pm via private vehicle by [facility]. Pts , Gerry Olivas ([phone]), was made aware of the discharge. Upon discharge, the pt appeared to be in a depressed mood and presented with a blunted affect. Pt appeared to be calm and cooperative. Pt is oriented x2. Pt denied both suicidal and homicidal ideation as well as auditory and visual hallucinations. Pt appeared to be well groomed and appropriately dressed at the time of discharge. Pt will follow up with dimensional inspector, Dr. Lucho GANN, located at [address] [place] [address]; . Pt will also follow up with his psychiatrist, Dr. Fonseca, located at [address] [address]; .
[2020-06-30] MEDS: LORAZEPAM 0.5 MG TABLET PO PRN (11:26)
--- NOTE | 2020-06-30 12:21 | NUR ---
UR Note: TYRONE faxed discharge clinical to [facility] with attention to Tiffanie Calderon to the fax number: [phone]
--- NOTE | 2020-06-30 13:52 | NUR ---
PATIENT AOX2-3, COMPLIANT WITH MEDICATION, DENIES SI AND HI PATIENT NO DISTRESS, MD AWARE OF DC,
== END 2020-06-30 13:55 | DRG 885 ==
LOC: ER 12:59 → GPS 14:07 → GPSOV3 06-21 00:18 → GPS 06-22 18:56 → GPSOV3 06-24 15:42 → GPS 06-28 16:50
PROVIDERS: ADMIT Psychiatry & Neurology Psychosomatic Medicine; ATTEND Registered Nurse
DX: F29 Unspecified psychosis not due to a substance or known physiological condition (principal); J96.01 Acute respiratory failure with hypoxia; E44.0 Moderate protein-calorie malnutrition; F23 Brief psychotic disorder; I48.20 Chronic atrial fibrillation, unspecified; R45.851 Suicidal ideations; F02.80 Dementia in other diseases classified elsewhere, unspecified severity, without behavioral disturbance, psychotic disturbance, mood disturbance, and anxiety; I25.2 Old myocardial infarction; E66.9 Obesity, unspecified; E88.09 Other disorders of plasma-protein metabolism, not elsewhere classified; F41.9 Anxiety disorder, unspecified; G89.4 Chronic pain syndrome; I10 Essential (primary) hypertension; I25.10 Atherosclerotic heart disease of native coronary artery without angina pectoris; J44.9 Chronic obstructive pulmonary disease, unspecified; N40.0 Benign prostatic hyperplasia without lower urinary tract symptoms; Z68.27 Body mass index [BMI] 27.0-27.9, adult; M48.00 Spinal stenosis, site unspecified; M19.90 Unspecified osteoarthritis, unspecified site; Z91.81 History of falling; G31.83 Neurocognitive disorder with Lewy bodies; F31.9 Bipolar disorder, unspecified; Z73.6 Limitation of activities due to disability; Z79.01 Long term (current) use of anticoagulants; Z79.891 Long term (current) use of opiate analgesic
CPT/HCPCS: 36415; 36600; 71045; 80164; 82803; 83735; 84100; 84443; 85025; 85730; 86140; 93005; A4663; J1650; J2358; J3490; U0003-CS